=== PATIENT | female | born 1990 ===

== ENCOUNTER 2020-07-01 14:35 | Outpatient (REF) | payer OTHER, SELFPAY | END 2020-07-01 14:36 | disposition home or self-care (01) | LOC: HO.LAB 14:35 | PROVIDERS: Visit Provider Nurse Practitioner Family | DX: Z13.89 Encounter for screening for other disorder (principal) ==

== ENCOUNTER 2020-07-01 15:32 | Outpatient (REF) | payer OTHER, SELFPAY | END 2020-07-01 15:33 | disposition home or self-care (01) | LOC: HO.LNP 15:32 | PROVIDERS: Visit Provider Nurse Practitioner Family | DX: Z20.828 Contact with and (suspected) exposure to other viral communicable diseases (principal); J02.9 Acute pharyngitis, unspecified | CPT/HCPCS: 87071; 87635 ==

== ENCOUNTER 2021-09-10 10:17 | Outpatient (REF) | payer OTHER, SELFPAY ==
[2021-09-10 14:17] LABS: CT PCR NOT DETECTED (Not Detect.); NG PCR NOT DETECTED (Not Detect.)
[2021-09-16 08:51] LABS: HPV mRNA E6/E7 Not Detected (Not Detected)
== END 2021-09-10 10:18 | disposition home or self-care (01) ==
LOC: HO.LAB 10:17
PROVIDERS: Visit Provider Internal Medicine
DX: Z12.4 Encounter for screening for malignant neoplasm of cervix (principal); Z11.51 Encounter for screening for human papillomavirus (HPV); N76.0 Acute vaginitis
CPT/HCPCS: 87491; 87591; 87624; 88142

== ENCOUNTER 2022-06-14 08:26 | Outpatient (REF) | payer OTHER, SELFPAY ==
[2022-06-14 11:16] LABS: MANUAL DIFF FLAG NO
[2022-06-14 11:33] LABS: Basophils Absolute Auto 0.1 X10*3/uL (0.0-0.2); Basophils Percent Auto 1.5 % (0-2); Eosinophils Absolute Auto 0.3 X10*3/uL (0.0-0.4); Eosinophils Percent Auto 4.9 % (0-4); Hematocrit 39.3 % (37.0-47.0); Hemoglobin 12.8 g/dl (12.0-16.0); Imm Gran Abs Auto 0.02 X10*3/uL (0.00-0.03); Imm Gran Pct Auto 0.3 % (0.0-0.4); Lymphocytes Absolute Auto 1.9 X10*3/uL (1.2-4.9); Mean Corpuscular HGB Conc 32.6 g/dl (31.0-35.0); Mean Corpuscular Hemoglobin 30.2 pg (27.0-33.0); Mean Corpuscular Volume 92.7 fL (80.0-98.0); Mean Platelet Volume 9.8 fL (9.4-12.3); Monocytes Absolute Auto 0.5 X10*3/uL (0.1-1.2); Monocytes Percent Auto 7.9 % (2-11); Neutrophils Absolute Auto 3.3 x10*3/uL (2.0-8.3); Neutrophils Percent Auto 54.4 % (45-73); Platelet Count 286 X10*3/uL (160-400); Red Blood Count 4.24 X10*6/uL (4.20-5.50); White Blood Count 6.1 X10*3/uL (4.8-10.8)
[2022-06-14 11:34] LABS: INTERNATIONAL NORM RATIO 0.9 (0.9-1.1); Prothrombin Time 10.5 SEC (10.0-13.1)
[2022-06-14 12:01] LABS: HIV AB/AG Nonreactive (Nonreactive); HIV Num 1 0.07 S/CO (0.00-0.99)
[2022-06-14 12:07] LABS: Alanine Aminotransferase 13 U/L (0-31); Albumin Level 4.6 g/dL (3.5-5.0); Alkaline Phosphatase 74 U/L (39-117); Anion Gap 13 (12-20); Aspartate Amino Transferase 13 U/L (5-31); Bilirubin Total 0.3 mg/dL (0.0-1.0); Blood Urea Nitrogen 13 mg/dL (9-16); Calcium 9.7 mg/dL (8.4-10.2); Carbon Dioxide 26 mmol/L (22-29); Chloride 105 mmol/L (96-108); Estimated Glomerular Filt Rate > 60; Glucose Random 100 mg/dL (60-115); Potassium 4.6 mmol/L (3.3-5.1); Sodium 139 mmol/L (135-145); Total Protein 7.1 g/dL (6.5-8.0)
[2022-06-14 12:08] LABS: Estimated Average Glucose 105 mg/dL; Hemoglobin A1c % 5.3 %
[2022-06-14 12:14] LABS: HCG Quantitative < 2 mIU/mL; Thyroid Stimulating Hormone 3.32 uIU/mL (0.32-4.0)
== END 2022-06-14 08:27 | disposition home or self-care (01) ==
LOC: HO.HMGCLDS 08:26
PROVIDERS: PCP Internal Medicine; Visit Provider Obstetrics & Gynecology
DX: Z01.818 Encounter for other preprocedural examination (principal)
CPT/HCPCS: 36415; 80053; 83036; 84443; 84702; 85025; 85610; 87389

== ENCOUNTER 2022-09-23 14:46 | Outpatient (REF) | payer OTHER, SELFPAY ==
[2022-09-24 12:31] LABS: BV Int Neg Control Negative (Negative); BV Int Pos Control Positive (Positive)
== END 2022-09-23 14:47 | disposition home or self-care (01) ==
LOC: HO.LAB 14:46
PROVIDERS: Visit Provider Internal Medicine
DX: N89.8 Other specified noninflammatory disorders of vagina (principal)
CPT/HCPCS: 87480; 87510; 87660

== ENCOUNTER 2024-05-10 11:57 | Outpatient (AMB) | payer OTHER, SELFPAY ==
[2024-05-10 12:12] VITALS: BP 108/76; PULSE 88; O2SAT 100; BMI 23.8
--- NOTE | 2024-05-10 12:12 | MHC.PC.OV ---
Vital Signs 05/10/24 12:12 Height 5 ft 2 in Weight 130 lb BMI 23.8 BP 108/76 Blood Pressure Location Lt brachial Position Sitting Pulse 88 Pulse Source Pulse Oximeter Pulse Oximetry (%) 100 Oxygen Delivery Method Room Air Intake Visit Reasons: Physical Overdue Intake Note: Pt is here today for PE. Allergies No Known Allergies [No Known Allergies*] Allergy (Unverified 05/10/24 12:14) Medication List - Last Reconciled 05/10/24 by Adrianne Felipe MD No Known Home Meds Tobacco use date assessed: 05/10/24 Dental Screening Dental Screen Date: 05/10/24 Did you have a dental visit in the last 12 months?: Yes Did you have a dental problem in the last 6 months where you did not have access to dental care?: No Was dental information given to patient?: Patient has dentist HPI Physical Overdue HPI Details Pt presents for PE. [facility] Medical History (Updated 05/10/24 @ 12:28 by Adrianne Felipe MD) Vaginitis Annual physical exam Anxiety Surgical History History of liposuction of abdomen Hx of section Family History Father No problems noted. Mother No problems noted. 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 1. Little interest or pleasure in doing things: more than half the days 2. Feeling down, depressed, or hopeless: not at all 3. Trouble falling or staying asleep, or sleeping too much: several days 4. Feeling tired or having little energy: several days 5. Poor appetite or overeating: several days 6. Feeling bad about yourself - or that you are a failure or have let yourself or your family down: not at all 7. Trouble concentrating on things, such as reading the newspaper or watching television: more than half the days 8. Moving or speaking so slowly that other people could have noticed. Or the opposite - being so fidgety or restless that you have been moving around a lot more than usual: not at all 9. Thoughts that you would be better off or of hurting yourself in some way: not at all Total score: 7 Depression Screening Interpretation: Negative Depression Screening Done: Yes 27530 - PHQ-9 Billing: Yes Source: Developed by Drs. Mehul Mckeon, Denise Whittaker, Leroy Tovar and colleagues, with an educational deysi from [employer]. Thrive Questionnaire Date Thrive assessed: 05/10/24 I am a: Patient What is your living situation today?: I have a steady place to live Within the past 12 months, did the food you bought not last and you didn't have the money to get more?: Never true Within the past 12 months, did you worry whether your food would run out before you got money to buy more?: Sometimes True Do you have trouble paying for medicines?: No Do you have trouble getting transportation to medical appointments?: No Do you have trouble paying your heating and electricity bill?: No Do you have trouble taking care of your child, family member or friend?: No Do you have trouble with day-to-day activities such as bathing, preparing meals, shopping, managing finances, etc.?: No Are you currently unemployed and looking for a job?: No Are you interested in more education?: No Please select the resources that you would like help with: None Currently or been in a relationship where the following occur: No concerns reported THRIVE Score: 1 AUDIT C Alcohol Use Questionnaire (AUDIT-C) 1. How often do you have a drink containing alcohol?: Monthly or less 2. How many drinks containing alcohol do you have on a typical day when you are drinking?: 1 or 2 3. How often do you have six or more drinks on one occasion?: Less than monthly Total Score: 2 ROSIBEL-7 AMB Questionnaire ROSIBEL-7 Date ROSIBEL - 7 assessed: 05/10/24 Feeling nervous, anxious, or on edge: 3 = Nearly every day Not being able to stop or control worryin = More than half the days Worrying too much about different things: 2 = More than half the days Trouble relaxin = More than half the days Being so restless that it is hard to sit still: 2 = More than half the days Becoming easily annoyed or irritable: 2 = More than half the days Feeling afraid as if something awful might happen: 0 = Not at all Total ROSIBEL-7 score (0-4 normal; 5-9 mild; 10-14 moderate; 15-21 severe): 13 Source: Developed by Drs. Mehul Mckeon, Denise Whittaker, Leroy Tovar and colleagues, with an educational deysi from [employer]. ROSIBEL-7 Assessment Billing ROSIBEL-7 Assessment Tool: ROSIBEL-7 Assessment 20741 Review of Systems Const All systems reviewed & are unremarkable except as noted in HPI and below Reports no additional complaints Eyes Reports no additional complaints ENT Reports no additional complaints Card Reports no additional complaints Resp Reports no additional complaints GI Reports no additional complaints Reports no additional complaints Musc Reports no additional complaints Physical exam (Primary Care) Vital Signs: Last Vital Signs Pulse 88 05/10/24 12:12 BP 108/76 05/10/24 12:12 Pulse Ox 100 05/10/24 12:12 Oxygen Delivery Method Room Air 05/10/24 12:12 BMI result Body Mass Index 23.8 Tobacco/Smoking Status: Tobacco use Status Tobacco use date assessed 05/10/24 05/10/24 12:21 Patient Tobacco Use Status Never used Tobacco (4 years 05/10/24 12:21 ago) e-Cigarette/Vaping Use Former Use 05/10/24 12:21 PHQ-9: PHQ-9 Score PHQ-9: Total score 7 05/10/24 12:21 Depression Screening Interpretation: Negative Thrive Assessment: Date of Thrive Assessment Date Thrive assessed 05/10/24 05/10/24 12:21 Currently or been in a relationship where the following occur: No concerns reported Const General: no acute distress HENMT Head: Yes normal to inspection Ears: hearing grossly normal bilaterally General nose exam: Normal external nose present Face and sinus: Yes normal facial exam Mouth: Normal oral and palatal mucosa present Teeth and gingiva: dentition normal Eyes General: appearance normal, both eyes and all related structures Neck Neck: Yes no lymphadenopathy and Yes supple Resp Effort & Inspection: normal respiratory effort Auscultation: clear to auscultation bilaterally Cardio Rhythm: regular rhythm Heart sounds: S1 normal heart sound present and S2 normal heart sound present GI Inspection: Yes normal to inspection Palpation (GI): Soft to palpation Percussion: Yes normal to percussion Auscultation: normal bowel sounds Assessment and Plan Assessment & Plan (1) Annual physical exam: Code(s): Z. 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 - Encounter for general adult medical examination without abnormal findings, Z.419 - Encounter for gynecological examination (general) (routine) without abnormal findings Lipid Panel 1 Year Z. - Encounter for general adult medical examination without abnormal findings Complete Blood Count Auto Diff 1 Year Z00. - Encounter for general adult medical examination without abnormal findings Lipid Panel Today Z00.00 - Encounter for general adult medical examination without abnormal findings, Z01.419 - Encounter for gynecological examination (general) (routine) without abnormal findings Comprehensive [place]. Panel Fast Today Z.00 - Encounter for general adult medical examination without abnormal findings, Z01.419 - Encounter for gynecological examination (general) (routine) without abnormal findings TSH reflex Free T4 Today Z00.00 - Encounter for general adult medical examination without abnormal findings, Z01.419 - Encounter for gynecological examination (general) (routine) without abnormal findings Comprehensive [place]. Panel Fast 1 Year Z. - Encounter for general adult medical examination without abnormal findings Coding Level of Care Code Est Pt Prev Care 18-39y(77922) Diagnoses Annual physical exam Z00. Normal pelvic exam Z01.419 Additional Codes ROSIBEL-7 Assessment Billing - ROSIBEL-7 Assessment Tool: ROSIBEL-7 Assessment 69836 ([id number])
== END 2024-05-10 13:21 | disposition home or self-care (01) ==
PROVIDERS: PCP Internal Medicine; Visit Provider Internal Medicine
DX: Z00.00 Encounter for general adult medical examination without abnormal findings (principal)
CPT/HCPCS: 99395